=== PATIENT | female | born 1970 ===

== ENCOUNTER 2018-02-03 14:34 | Inpatient (IN) | payer OTHER ==
[~2018-02-03] VITALS: Ht 160 cm; Wt 80.7 kg
[~2018-02-03 14:34] MED LIST: TRAMADOL HCL50 MG PO
[2018-02-03] MEDS ORDERED: MULTI-DAY PLUS1 EACH PO (15:00)
[2018-02-08] MEDS ORDERED: PERCOCET 5-3251 EACH PO (12:38)
== END 2018-02-08 13:34 | disposition home or self-care (01) | DRG 743 ==
LOC: SURG 02-05 06:21 → O/R 02-05 06:21 → SURG 02-05 07:00
PROVIDERS: Obstetrics & Gynecology
PROC: 0UT70ZZ Resection of Bilateral Fallopian Tubes, Open Approach (ICD-10-PCS; 2018-02-05)
PROC: 0UT90ZZ Resection of Uterus, Open Approach (ICD-10-PCS; principal; 2018-02-05 07:00)
DX: D25.0 Submucous leiomyoma of uterus (principal); N80.0 Endometriosis of uterus; N84.0 Polyp of corpus uteri; N72 Inflammatory disease of cervix uteri